=== PATIENT | female | born 1975 | race African-American/Black ===

== ENCOUNTER 2021-10-22 16:09 | Inpatient (IN) | payer OTHER, SELFPAY ==
[2021-10-22] VITALS (41 sets, daily range): BP systolic 73–136; BP diastolic 20–89; PULSE 36–111; RESP 14–19; TEMP 36.3–37.1; O2SAT 88–100; BMI 28.3
[2021-10-22 16:40] LABS: Basophils Percent Auto 0.2 % (0.2-1.2); Eosinophils Percent Auto 0.3 % (0-4.4); Hematocrit 40.3 % (37.0-47.0); Hemoglobin 14.1 g/dL (12.0-15.0); Immature Granulocyte Absolute 0.14 K/mm3 (0.00-0.031); Lymphocytes Absolute Auto 2.01 K/mm3 (0.9-3.2); Lymphocytes Percent Auto 14.2 % (18.3-44.2); Mean Corpuscular Hemoglobin 34.3 pg (26-34); Mean Corpuscular Volume 98.1 fl (80-100); Mean Platelet Volume 10.9 fl (7.4-10.4); Monocytes Percent Auto 6.8 % (2.6-8.5); Neutrophils Percent Auto 77.5 % (45.5-73.1); Platelet Count Result 194 k/mm3 (150-375); Red Blood Count 4.11 M/mm3 (4.2-5.4); Red Cell Distribution Width 13.6 % (11.5-14.5); White Blood Count 14.2 K/mm3 (4.5-10.0)
[2021-10-22 16:52] LABS: Alanine Aminotransferase 12 U/L (4-35); Albumin Level 3.7 g/dL (3.5-5.1); Alkaline Phosphatase 168 U/L (38-126); Anion Gap 5 mmol/L (8-16); Aspartate Amino Transferase 25 U/L (14-36); Bilirubin,Total 0.5 mg/dL (0.2-1.3); Blood Urea Nitrogen 6 mg/dL (7-17); Calcium 8.5 mg/dL (8.4-10.2); Carbon Dioxide 19 mmol/L (22-30); Chloride 109 mmol/L (98-107); Estimated Glomerular Filt Rate > 60; Glucose 84 mg/dL (65-110); Potassium 3.5 mmol/L (3.4-5.0); Sodium 133 mmol/L (137-145)
[2021-10-22 17:16] LABS: Uric Acid 5.4 mg/dL (2.5-7.5)
[2021-10-22 17:20] LABS: Amphetamine Screen Urine Negative (Negative); Barbiturate Screen Urine Negative (Negative); Benzodiazepines Screen Urine Negative (Negative); Cannabinoid Screen Urine Positive (Negative); Cocaine Screen Urine Negative (Negative); Methadone Screen Urine Negative (Negative); Opiate Screen Urine Negative (Negative); Phencyclidine Screen Urine Negative (Negative)
--- NOTE | 2021-10-22 17:28 | WPDANESEPP ---
Anes - Eval Pre Procedure Procedure: Operation Date: 10/22/21 16:45 Proposed Procedures p Section - Fritz Ibarra MD Date/Time: 10/22/21 17:28 Pre Op Diagnosis: Labor Patient Data Age: 46 Gender: F Height: Weight: Allergies Allergy/AdvReac Type Severity Reaction Status Date / Time No Known Allergies Allergy Verified 09/18/21 13:04 Laboratory Tests 10/22/21 10/22/21 10/22/21 16:29 16:29 16:29 WBC 14.2 K/mm3 H K/mm3 (4.5-10.0) RBC 4.11 M/mm3 L M/mm3 (4.2-5.4) Hgb 14.1 g/dL g/dL (12.0-15.0) Hct 40.3 % % (37.0-47.0) MCV 98.1 fl fl (80-100) MCH 34.3 pg H pg (26-34) MCHC 35.0 g/dl g/dl (32-36) RDW 13.6 % % (11.5-14.5) Plt Count 194 k/mm3 k/mm3 (150-375) MPV 10.9 fl H fl (7.4-10.4) Immature Gran % (Auto) 1.0 % H % (0-0.5) Neut % (Auto) 77.5 % H % (45.5-73.1) Lymph % (Auto) 14.2 % L % (18.3-44.2) [place] % (Auto) 6.8 % % (2.6-8.5) Eos % (Auto) 0.3 % % (0-4.4) Baso % (Auto) 0.2 % % (0.2-1.2) Lymph # (Auto) 2.01 K/mm3 K/mm3 (0.9-3.2) [place] # (Auto) 1.0 K/mm3 H K/mm3 (0.1-0.6) Eos # (Auto) 0.0 K/mm3 K/mm3 (0-0.3) Baso # (Auto) 0.0 K/mm3 K/mm3 (0.0-0.1) Abs Immat Gran (auto) 0.14 K/mm3 H K/mm3 (0.00-0.031) Absolute Neuts (auto) 11.0 K/mm3 H K/mm3 (1.3-6.7) Absolute Nucleated RBC 0.0 K/mm3 K/mm3 (0.0-0.012) Nucleated RBC % 0.0 % % (0.0-0.2) Sodium Potassium Chloride Carbon Dioxide Anion Gap BUN Creatinine Estim Creat Clear Calc Estimated GFR Glucose Uric Acid Calcium Total Bilirubin AST ALT Alkaline Phosphatase Total Protein Albumin Urine Opiates Screen Urine Methadone Screen Ur Barbiturates Screen Ur Phencyclidine Scrn Ur Amphetamine Screen U Benzodiazepines Scrn Urine Cocaine Screen U Cannabinoids Screen RPR Pending Hep Bs Antigen HIV 1&2 Ab/P24 Ag 4thGn Rubella IgG Antibody Pending Blood Type Antibody Screen 10/22/21 10/22/21 10/22/21 16:29 16:29 16:29 WBC RBC Hgb Hct MCV MCH MCHC RDW Plt Count MPV Immature Gran % (Auto) Neut % (Auto) Lymph % (Auto) [place] % (Auto) Eos % (Auto) Baso % (Auto) Lymph # (Auto) [place] # (Auto) Eos # (Auto) Baso # (Auto) Abs Immat Gran (auto) Absolute Neuts (auto) Absolute Nucleated RBC Nucleated RBC % Sodium 133 mmol/L L mmol/L (137-145) Potassium 3.5 mmol/L mmol/L (3.4-5.0) Chloride 109 mmol/L H mmol/L (98-107) Carbon Dioxide 19 mmol/L L mmol/L (22-30) Anion Gap 5 mmol/L L mmol/L (8-16) BUN 6 mg/dL L mg/dL (7-17) Creatinine 0.60 mg/dL L mg/dL (0.7-1.0) Estim Creat Clear Calc Not Reportable Estimated GFR > 60 (59 - ) Glucose 84 mg/dL mg/dL (65-110) Uric Acid Calcium 8.5 mg/dL mg/dL (8.4-10.2) Total Bilirubin 0.5 mg/dL mg/dL (0.2-1.3) AST 25 U/L U/L (14-36) ALT 12 U/L U/L (4-35) Alkaline Phosphatase 168 U/L H U/L (38-126) Total Protein 7.0 g/dL g/dL (6.3-8.2) Albumin 3.7 g/dL g/dL (3.5-5.1) Urine Opia
[2021-10-22 17:45] LABS: Rubella IgG Antibody 13.5 IU/ML
[2021-10-22 17:48] LABS: Hepatitis B Surface Antigen Negative (Negative)
--- NOTE | 2021-10-22 17:56 | PM.IMHP ---
H&P: HPI History of Present Illness Date/Time: 10/22/21 17:56 Patient presented to L and D with complaints of contractions. She does not have an established OB. She states it has been a while since she had care. She informed staff that EDC was Oct 26. Has had vaginal deliveries. There is a history of stillbirth. On arrival at cervical exam it was felt that she had a breech presentation, possible footling. Bedside ultrasound performed and confirmed footling breech. On exam cervix 7cm/80%. Her answers to her questions regarding her history and symptoms were vague. Her contractions started sometime this afternoon. She denied a gush of fluid. She denied any alcohol or drug use. Social history obtained from chart showed positive history of tobacco and marijuana. Chief Complaint: contractions Review of Systems Review of Systems: All systems reviewed & are unremarkable except as noted in HPI and below Constitutional: Constitutional: Reports no additional constitutional complaints and Denies headache(s) Eyes: Eyes: Denies spots in vision ENT: Reports system reviewed and no additional complaints, except as documented and Denies headache(s) Cardiovascular: Cardiovascular: Denies chest pain and Denies dyspnea Respiratory: Respiratory: Denies dyspnea Gastrointestinal: Gastrointestinal: Reports no additional gastrointestinal complaints Genitourinary: Genitourinary: Reports amenorrhea Musculoskeletal: Musculoskeletal: Reports no additional musculoskeletal complaints Integumentary/Breasts: Skin/Breast: Denies breast mass and Denies rash Neurologic: Denies headache(s) Psychiatric: Psychiatric: Reports no additional psychiatric complaints [facility] Family History Family History (Updated 09/18/21 @ 13:05 by Jaylin Ricci MA) Unknown Hypertension Diabetes mellitus Social History Social History (Updated 09/18/21 @ 13:05 by Jaylin Ricci MA) Smoking status: Current every day smoker Tobacco type: cigarettes Alcohol intake: never Substance use: current Substance use type: marijuana Gender identity (if verbalized by the patient): Female Meds Home Medications and Allergies Allergies Allergy/AdvReac Type Severity Reaction Status Date / Time No Known Allergies Allergy Verified 09/18/21 13:04 Exam Const: General: no acute distress Eyes: General: appearance normal, both eyes and all related structures Resp: Effort & Inspection: normal respiratory effort Cardio: Rate: regular rate GI: Other: Gravid no fundal tenderness no right upper quadrant pain : External Female Exam: normal external appearance Other: cervix 7/80% Skin: General skin exam: no rashes or lesions noted Neuro: Cognition (Neuro): normal cognition Extrem: General: normal to inspection Psych: Speech and movement: Slowed speech present (Psych) Affect: Blunted affect present H&P: Results Labs Labs: Short CBC 10/22/21 Range/Units 16:29 WBC 14.2 H (4.5-10.0) K/mm3 Hgb 14.1 (12.0-15.0) g/dL Hct 40.3 (37.0-47.0) % Plt Count 194 (150-375) k/mm3 BMP 10/22/21 16:29 Sodium 133 L Potassium 3.5 Chloride 109 H Carbon Dioxide 19 L BUN 6 L Creatinine 0.60 L Glucose 84 Calcium 8.5 Liver Function 10/22/21 Range/Units 16:29 Total Bilirubin 0.5 (0.2-1.3) mg/dL AST 25 (14-36) U/L ALT 12 (4-35) U/L Alkaline Phosphatase 168 H (38-126) U/L Albumin 3.7 (3.5-5.1) g/dL Assessment and Plan Assessment and plan (1) Footling breech presentation: Code(s): O32.8XX0 - Maternal care for other malpresentation of fetus, not applicable or unspecified Status: Acute (2) Active labor: Status: Acute Assessment and Plan: She was informed of need for delivery via ceserean section due to breech presentation. Discussed risk benefits of ceserean section. Questions answered. She agreed to ceserean section. (3) Poor social situation: [place]
[2021-10-22 17:58] LABS: HIV 1/2 Ab P24 Ag Result Negative (Negative)
--- NOTE | 2021-10-22 18:09 | PC.NURSE ---
Social service consult ordered. Patient states she does not have any of her children at home with her currently. Patient states there is an open social service case currently; addiction social worker Dash. Patient states that children were removed from here when she was homeless. Patient states that she did not received care r/t transportation problems. Patient states she does currently have a home. Patient states she currently smokes marijuana, but denies any other drug use. Dr. Ibarra updated.
[2021-10-22 18:11] LABS: Rapid Plasma Reagin Non-Reactive (NonReactive)
--- NOTE | 2021-10-22 18:14 | LDADM ---
This patient, Kevin Stewart, was admitted to Labor/Delivery/Recovery 106 on 10/22/21 at 16:09. Plans for labor, pain management and were discussed with patient. Patient/family oriented to hospital policies and general routines including ID bracelet, bed and alarms, visiting hours, pain management, procedures, bathroom and other care routines, personal items, smoking policy, room service/diet and guest tray routines, infant security routines, and visiting hours. Patient/Family are encouraged to report perceived risks to care and to ask questions if they do not understand what they are told or what they should do. See OBIX for further documentation.
--- NOTE | 2021-10-22 18:23 | W.PM.PROC2 ---
Procedure Note - Detailed Date of Procedure 10/22/21 Pre-op Diagnosis Footling breech presentation Active labor Post-op Diagnosis Same Procedure Performed Primary low transverse ceserean section Surgeon Fritz Ibarra MD Anesthesia Spinal Indications Walk in patient presented in active labor footling breech presentation. Findings Male infant apgars 7,9, both footling presentation. Normal uterus fallopian tubes and ovaries, thick meconium stained fluid. Description of Procedure After informed consent, risks and benefits of the procedure was discussed with the patient. The patient was taken to the operating room where she was placed in the dorsal lithotomy position with leftward tilt. After the prior placed epidural anesthesia was found to be adequate, she was then prepped and draped in the usual sterile fashion. A Pfannenstiel skin incision was made with a scalpel and carried through to the underlying layer of fascia. The fascia was then nicked in the midline, extending bilaterally. The fascia was dissected off the rectus muscles bluntly and sharply, superiorly and inferiorly. The rectus muscles were in the midline, and peritoneum was identified and entered bluntly. The pelvic organs were visualized. The bladder blade was then inserted. The vesicouterine peritoneum was identified and entered sharply with Metzenbaum scissors and extended bilaterally and then the bladder flap was created digitally. The low transverse uterine incision was then made with the scalpel and extended with bilateral index fingers in a crescent-shaped fashion. Both feet were presenting and grasped, the torso was delivered and the arms were delivered in a pinard fashion, gentle pressure applied to fundus and bandage scissors were then used to extend incision and allow delivery of head. The thin cord was clamped twice and cut and handed to nursery staff. Cord segment was obtained, minimal cord blood obtained from the residual thin cord. The placenta was then delivered manually. The uterine cavity was sponge curretted. The uterus was then exteriorized. The uterine incision was then closed with 0 vicryl in a running locked fashion. Several figure of eight sutures of 0 vicryl were used for hemostasis. Hemostasis noted. A second layer of 0 vicryl was used in an imbricating fashion for hemostasis. Posterior cul de sac irrigated and cleared of fluid. The uterus was then returned to the abdomen. Bilateral gutters were cleared off all clots and debris. The uterine incision was noted to be hemostatic. Interceed placed on uterine incision and vertically on front of uterus. The muscle bellies were inspected and noted to be hemostatic. The subfascial layer was noted to be hemostatic, and the fascia was closed with 0 Vicryl in a running fashion. The subcutaneous layer was then closed with 3-0 Vicryl in a subcutaneous fashion. The skin was closed with Insorb pham. Skin dermabond applied at incision. All instruments, needle, and lap counts were correct x3. The patient was taken to the recovery room in stable condition. Estimated Blood Loss 765 Drains No Packing No Pathology Yes (placenta and cord) Complications No immediate complications Condition Stable Disposition Floor
--- NOTE | 2021-10-22 20:13 | OBPPTRN ---
Patient transferred to post room #290 via bed. Support person present. Oriented to unit, room, information board, rooming in, admission packet and security measures. Patient verbalizes understanding.
[2021-10-22] MEDS: DEXTROSE 5%/0.45% SOD CHL 1,000 ML 125 ML IV CONT (21:48)
[2021-10-22] MEDS: ONDANSETRON INJ 4 MG/2 ML VIAL IV PUSH (23:29)
[2021-10-23 04:30] VITALS: BP 118/70; PULSE 76; RESP 18; TEMP 36.9
[2021-10-23 05:34] LABS: Basophils Percent Auto 0.3 % (0.2-1.2); Eosinophils Percent Auto 0.2 % (0-4.4); Hematocrit 29.1 % (37.0-47.0); Hemoglobin 10.2 g/dL (12.0-15.0); Immature Granulocyte Absolute 0.05 K/mm3 (0.00-0.031); Immature Granulocyte Percent A 0.4 % (0-0.5); Lymphocytes Absolute Auto 1.12 K/mm3 (0.9-3.2); Lymphocytes Percent Auto 8.8 % (18.3-44.2); Mean Corpuscular HGB Conc 35.1 g/dl (32-36); Mean Corpuscular Hemoglobin 34.8 pg (26-34); Mean Corpuscular Volume 99.3 fl (80-100); Mean Platelet Volume 11.3 fl (7.4-10.4); Monocytes Absolute Auto 0.7 K/mm3 (0.1-0.6); Monocytes Percent Auto 5.6 % (2.6-8.5); Neutrophils Absolute Auto 10.8 K/mm3 (1.3-6.7); Neutrophils Percent Auto 84.7 % (45.5-73.1); Platelet Count Result 161 k/mm3 (150-375); Red Blood Count 2.93 M/mm3 (4.2-5.4); Red Cell Distribution Width 13.4 % (11.5-14.5); White Blood Count 12.8 K/mm3 (4.5-10.0)
[2021-10-23 07:50] VITALS: BP 120/67; PULSE 89; RESP 18; TEMP 37.7; O2SAT 100
[2021-10-23 08:00] VITALS: PULSE 75; RESP 16; O2SAT 97
--- NOTE | 2021-10-23 10:52 | WPDANLDPN2 ---
Anes-Prog Note L&D Date/Time: 10/23/21 10:52 Comfortable throughout: section Neuraxial method: spinal Epidural/Spinal procedure site: clean & non-tender Neuro status: Neuro function grossly intact. Cardiovascular status: normal Respiratory status: normal Airway patency: baseline Mental status: baseline Post-Op hydration status: normal Vital Signs: Last Vital Signs Temp 37.7 C H 10/23/21 07:50 Pulse 89 10/23/21 07:50 Resp 18 10/23/21 07:50 BP 120/67 10/23/21 07:50 Pulse Ox 100 10/23/21 07:50 Pain score (VAS): 08/19 I/O: Intake & Output 10/22/21 10/23/21 10/23/21 23:59 07:59 15:59 Intake Total 150 1550 Output Total 1303 650 Balance -1153 900 Post-procedural complaints: none Patient feedback: Patient satisfied with anesthetic care.
--- NOTE | 2021-10-23 10:53 | WPDANLDNPN2 ---
Anes-Prog Note L&D-Neuraxial Date/Time: 10/23/21 10:53 Neuraxial medications: intrathecal PF morphine Opiod-related complaints: none Patient feedback: Patient satisfied with post-operative pain management.
--- NOTE | 2021-10-23 11:33 | PCCCNOTE ---
Addendum entered by VANESA Alex 10/24/21 16:05: Received call this afternoon from [facility] bag worker Silvana who reports they have toured pt.'s home today. Pt. is cleared to discharge home with the baby. RN aware and reports likely discharge tomorrow. Pt. aware and requests a car seat as they do not have one at this time. Addendum entered by VANESA Alex 10/24/21 08:18: Received call from [facility] bag worker Silvana ([phone]) who reports she will come to hospital today, 10/24 to meet with pt. Original Note: Care Coordination Consult: Met with pt. today. This is pt.'s 11th children, she currently has 5 other children under the age of 18. Pt. aware she tested positive for marijuana upon admission, baby also tested positive. She reports recreational marijuana use at home, denies any other substance use. Pt. reports she is current with [facility] with her egg caser Dash ([phone]) for her other children. She reports DCFS was involved due to homelessness but that she currently has established housing and plans to reside at [address] [place] [address] at discharge. She is set to have a court hearing this month with [facility] and is hopeful to reunify soon. Spoke with egg caser Dash who confirms above. Dash aware a DCFS report will be made regarding marijuana use and above information and Dash confirms this is [facility] policy as well. Online DCFS report made reference # [id number]. Pt. reports she has some small items at home but does not have a car seat or a [employer]. resources provided. Pt. plans to establish with WIC at discharge. Following
[2021-10-23 12:10] VITALS: BP 111/69; PULSE 75; RESP 16; TEMP 37.1; O2SAT 97
[2021-10-23] MEDS: DOCUSATE SODIUM 100 MG CAPSULE PO ×2 (13:17→17:31)
[2021-10-23] MEDS: IBUPROFEN 600 MG TABLET PO (13:18)
[2021-10-23] MEDS: HYDROcodone/acetaminophen (*CRX) 5-325 MG TABLET 1 TAB PO (13:19)
[2021-10-23] MEDS: SIMETHICONE 80 MG TAB.CHEW PO (13:20)
[2021-10-23 16:45] VITALS: BP 122/70; PULSE 76; RESP 18; TEMP 36.8; O2SAT 98
[2021-10-23] MEDS: HYDROcodone/acetaminophen (*CRX) 10-325 MG TABLET 1 TAB PO (17:31)
[2021-10-23 18:50] VITALS: BP 110/64; PULSE 81; RESP 18; TEMP 36.7
--- NOTE | 2021-10-23 19:51 | PM.OBPNVD ---
OB - PN: Subj Subjective Date/time seen: 10/23/21 0900 She has adequate pain control. Has ambulated in room. No emesis. No flatus. No leg pain. OB - PN: Obj Data Labs CBC & Chem 7: 10/23/21 04:23 10/22/21 16:29 Labs: Laboratory Results - last 24 hr 10/23/21 04:23 WBC 12.8 H RBC 2.93 L Hgb 10.2 L D Hct 29.1 L MCV 99.3 MCH 34.8 H MCHC 35.1 RDW 13.4 Plt Count 161 MPV 11.3 H Immature Gran % (Auto) 0.4 Neut % (Auto) 84.7 H Lymph % (Auto) 8.8 L [place] % (Auto) 5.6 Eos % (Auto) 0.2 Baso % (Auto) 0.3 Lymph # (Auto) 1.12 [place] # (Auto) 0.7 H Eos # (Auto) 0.0 Baso # (Auto) 0.0 Abs Immat Gran (auto) 0.05 H Absolute Neuts (auto) 10.8 H Absolute Nucleated RBC 0.0 Nucleated RBC % 0.0 OB - PN A/P Assessment and Plan (1) Delivery by section: Status: Acute Assessment and Plan: Doing well. Routine post op care. Time Spent With Patient Time: Total time spent is greater than 50% in coordination of care (as documented) at patient's floor/unit and/or counseling patient: Exam Const: General: comfortable and no acute distress Resp: Effort & Inspection: normal respiratory effort GI: Other: fundus firm at umbilicus appropriate tenderness, incision clean dry intact Extrem: Other: nontender no edema Psych: Mental Status: mental status grossly normal Affect: normal affect
[2021-10-24] MEDS: HYDROcodone/acetaminophen (*CRX) 5-325 MG TABLET 1 TAB PO ×4 (00:33→22:32)
[2021-10-24] MEDS: IBUPROFEN 600 MG TABLET PO ×4 (00:34→23:40)
[2021-10-24 07:20] VITALS: BP 128/76; PULSE 85; RESP 18; TEMP 36.6; O2SAT 100
--- NOTE | 2021-10-24 08:00 | PC.NURSE ---
PT introductions made and plan of care discussed per post op c section, pain management, bottle feeding, daily care activities and pending discharge to home. PT and significant other both recipients of such instructions. no barriers to learning identified. PT received instructions per one to one discussion, mom baby care guide and demonstrations this shift. PT verbalized understanding of such care.
--- NOTE | 2021-10-24 09:45 | PC.NURSE ---
DCFS workers and Care Coordination here to discuss plan of care with mom and set up home visit. Pack and play provided for fob to go home and set up. Discharge pending investigation of home visit and will contact Nando with outcome and determination of and mom discharge.
[2021-10-24] MEDS: DOCUSATE SODIUM 100 MG CAPSULE PO ×2 (11:34→17:28)
[2021-10-24] MEDS: SIMETHICONE 80 MG TAB.CHEW PO ×2 (11:34→17:28)
[2021-10-24 19:00] VITALS: BP 139/79; PULSE 80; RESP 16; TEMP 36.7; O2SAT 98
--- NOTE | 2021-10-24 21:12 | PM.OBPNVD ---
OB - PN: Subj Subjective Date/time seen: 10/24/21 0800 She has had positive flatus. Has ambulated without problems. Baby is bottlefeeding well. No leg pain. Lochia decreasing. Adequate pain control. Tolerating regular diet. OB - PN: Obj Data Labs CBC & Chem 7: 10/23/21 04:23 10/22/21 16:29 OB - PN A/P Assessment and Plan (1) Delivery by section: Status: Acute Assessment and Plan: POD2 doing well. Routine post op care. Time Spent With Patient Time: Total time spent is greater than 50% in coordination of care (as documented) at patient's floor/unit and/or counseling patient: Exam Const: General: comfortable and no acute distress Resp: Effort & Inspection: normal respiratory effort Cardio: Rate: regular rate GI: Other: incision clean dry intact Extrem: Other: nontender, no edema Psych: Mental Status: mental status grossly normal Affect: normal affect
[2021-10-25] MEDS: HYDROcodone/acetaminophen (*CRX) 5-325 MG TABLET 1 TAB PO (05:21)
[2021-10-25] MEDS: IBUPROFEN 600 MG TABLET PO ×2 (05:21→11:24)
[2021-10-25 08:40] VITALS: BP 112/79; PULSE 82; RESP 16; TEMP 36.3; O2SAT 100
[2021-10-25 09:30] VITALS: PULSE 82; RESP 16; O2SAT 100
--- NOTE | 2021-10-25 10:36 | PM.OBPNVD ---
OB - PN: Subj Subjective Date/time seen: 10/25/21 10:36 She reports pos bowel movement. Pos flatus. Ambulating well. Adequate pain control with medication. No leg pain. No chest pain. Decreasing lochia. Baby doing well. OB - PN: Obj Data Labs CBC & Chem 7: 10/23/21 04:23 10/22/21 16:29 OB - PN A/P Assessment and Plan (1) Delivery by section: Status: Acute Assessment and Plan: POD3- doing well. Will discharge home today. Discussed discharge precautions. Declines DepoProvera. Time Spent With Patient Time: Total time spent is greater than 50% in coordination of care (as documented) at patient's floor/unit and/or counseling patient: Exam Const: General: comfortable and no acute distress Resp: Effort & Inspection: normal respiratory effort GI: Other: incision clean dry intact Extrem: Other: nontender no edema Psych: Mental Status: mental status grossly normal Affect: normal affect
--- NOTE | 2021-10-25 10:45 | PM.OBDSVD ---
DS: Admitting Diagnosis Discharge Date 10/25/2021 Admitting Diagnosis Footling breech presentation in active labor. DS: Discharge Diagnosis Discharge Diagnosis (1) Delivery by section: Status: Acute (2) Footling breech presentation: Code(s): O32.8XX0 - Maternal care for other malpresentation of fetus, not applicable or unspecified Status: Acute (3) Active labor: Status: Acute OB - DS: Summary Hospital Course Hospital Course: Patient admitted in active labor. She was confirmed to be footling breech presentation. She had an uncomplicated primary ceserean section. she did well. Social service did see her. Prior to discharge she had adequate pain control, passage of flatus and had had a bowel movement. She was ambulating well. She was tolerating regular diet. Discharge precautions discussed. OB Procedures : None OB Procedures Intrapartum: (low transverse) OB Procedures: : None Peripartum Data Delivery Method: Section Procedures: Procedures Operation Date: 10/22/21 16:45 Actual Procedure Side Surgeon p Section Bilateral Fritz Ibarra MD complications: none Status at Discharge Functional status at discharge: independent ambulation Time Spent with Patient Time attestation: Total time spent providing and/or coordinating discharge services: Exam Const: General: cooperative Orientation/consciousness: oriented to person, oriented to place and oriented to time HENMT: General nose exam: Normal external nose present Eyes: General: appearance normal, both eyes and all related structures Resp: Effort & Inspection: normal respiratory effort GI: Inspection: normal to inspection Other: incision healing well Skin: General skin exam: normal color Neuro: General: oriented to person, oriented to place and oriented to time Extrem: General: normal to inspection and no calf tenderness Psych: Appearance: grossly normal Mental Status: mental status grossly normal DS: Data Data Completed and Pending Pending studies at discharge: Pending at discharge 10/22/21 17:05 Surgical [PTH] Routine Discharge Plan Discharge Attending physician on discharge: Fritz Ibarra Consulting providers: Zahra Hunter Discharging Clinician: Fritz Ibarra Anticipated Discharge Date/Time: 10/25/21 10:39 Patient Disposition: Home, Self-Care Activity: may shower, no driving and pelvic rest Diet: regular Wound Care Instructions: follow printed instructions and keep dressing dry Discharge Instructions: Pelvic rest for 4-6 weeks. May take over the counter Ibuprofen or Tylenol for pain. Take prescription pain medicine for pain not relieved with Motrin. Call if saturating more than a pad an hour, leg redness, pain and swelling, temperature>100.4, drainage from incision, fever or chills. No strenuous activity. No driving. Patient Instructions: Antibiotic Form Stand Alone Forms: General Discharge Information Follow-up/Referrals: Fritz Ibarra MD [Physician] - 11/05/21 3:15 pm Discharge Medications: New hydrocodone-acetaminophen 5-325 mg Tablet 1 tablet PO Q4H PRN (Reason: Pain Rated 4-6) Qty: 20 RF: 0 Date of admission: 10/22/21 16:09 Primary Care Provider: UNKNOWN,DOCTOR Admitting Provider: Fritz Ibarra Attending physician on admission: Fritz Ibarra Condition: Stable
[2021-10-25] MEDS: HYDROcodone/acetaminophen (*CRX) 10-325 MG TABLET 1 TAB PO (11:25)
[2021-10-25] MEDS: DOCUSATE SODIUM 100 MG CAPSULE PO (11:26)
[2021-10-28 10:20] VITALS: BP 142/84; PULSE 89; RESP 20; TEMP 37.3; O2SAT 100
== END 2021-10-25 12:35 | disposition home or self-care (01) | DRG 540 ==
LOC: ANHLDR 16:23 → ANHOB2 20:30
PROVIDERS: Admitting Provider Obstetrics & Gynecology; Visit Provider Obstetrics & Gynecology
PROC: 10D00Z1 Extraction of Products of Conception, Low, Open Approach (ICD-10-PCS; CPT 59514; principal; 2021-10-22 16:45)
DX: O32.8XX0 Maternal care for other malpresentation of fetus, not applicable or unspecified (principal); Z37.0 Single live birth; Z3A.39 39 weeks gestation of pregnancy; O77.0 Labor and delivery complicated by meconium in amniotic fluid
CPT/HCPCS: 36415; 80053; 80307; 84550; 85025; 86592; 86703; 86762; 86850; 86900; 86901; 87340; 88307; A9270; G0432; J0131; J1885; J2274; J2370; J2405; J2590